=== PATIENT | male | born 1990 | race Hispanic/Latino ===

== ENCOUNTER 2017-06-03 17:07 | Emergency (ER) | payer BC ==
[2017-06-03 17:21] VITALS: TEMP 98.2
[2017-06-03] MEDS ORDERED: HYDROcodone 10MG/APAP 325MG 1 EA TAB PO ONE (17:37)
[2017-06-03] MEDS ORDERED: KETOROLAC TROMETHAMINE INJ 60 MG/2 ML VIAL IM ONE (17:37)
--- NOTE | 2017-06-03 17:57 | ED.PDOC ---
History of Present Illness - General Chief Complaint: Upper Extremity Injury Stated Complaint: left shoulder pain Time Seen by Provider: 06/03/17 17:37 Source: patient Exam Limitations: no limitations - History of Present Illness Initial Comments: PT REPORTS INTERMITTENT PAIN TO THE LEFT SHOULDER WHILE WORKING OVER THE PAST FEW WEEKS. PT HAS HAD A ROTATOR CUFF REPAIR ON THE LEFT AND BELIEVES HE MAY HAVE RE-INJURED THE SHOULDER WHILE WORKING. PT DOES NOT RECALL ANY SPECIFIC EVENT AND STATES THAT PAIN HAS GRADUALLY INCREASED. Pain - Upper Extremity: moderate: Shoulder, left Method of Injury: unknown Improving Factors: immobilization, rest Worsening Factors: movement Allergies/Adverse Reactions: Allergies NO KNOWN ALLERGY Allergy (Verified 06/03/17 17:21) Home Medications: Ambulatory Orders Alprazolam [Xanax] 1 mg PO PRN 06/03/17 Clonazepam [Clonazepam] 1 mg PO BID 06/03/17 Ibuprofen 800 mg PO Q8HR PRN #30 tab 06/03/17 Tramadol-Acetaminophen [Ultracet] 1 - 2 tab PO Q6HR PRN #30 tab 06/03/17 Venlafaxine Xr [Effexor Xr] 75 mg PO DAILY 06/03/17 Review of Systems - Review of Systems Constitutional: Denies: chills, fever Respiratory: Denies: cough, short of breath Gastrointestinal/Abdominal: Denies: nausea, vomiting Musculoskeletal: States: joint pain. Denies: joint swelling, muscle pain, muscle stiffness Past Medical History (General) - Patient Medical History Hx Stroke: No Hx Congestive Heart Failure: No Hx Diabetes: No - Vaccination History Hx Tetanus, Diphtheria Vaccination: Yes Hx Influenza Vaccination: Yes Hx Pneumococcal Vaccination: No - Social History Hx Tobacco Use: Yes Family Medical History - Family History Father Family History: Unknown Living Status: Unknown Physical Exam - Physical Exam General Appearance: Alert, Comfortable, No apparent distress, Well Developed, Well Groomed, Well Hydrated Eyes, Ears, Nose, Throat Exam: normal ENT inspection Neck: normal inspection Shoulder Exam: normal inspection, no evidence of injury, normal ROM, soft tissue tenderness - TO THE ANTERIOR ASPECT Elbow/Forearm Exam: normal inspection, no evidence of injury Wrist Exam: normal inspection, no evidence of injury Hand Exam: normal inspection, no evidence of injury Neuro/Tendon: normal sensation, normal motor functions, normal tendon functions Mental Status: alert, oriented x 3 Skin Exam: normal color, warm/dry Departure - Departure Clinical Impression: Sprain and strain of shoulder and upper arm Time of Disposition: 17:54 Disposition: Discharge to Home or Self Care Condition: Good Departure Forms: ED Discharge - Pt. Copy, Patient Portal Self Enrollment Instructions: DI for Arm Pain, DI for Shoulder Sprain Activity: no lifting, no pushing/pulling with affected limb Referrals: Efe Juarez MD [Active Staff] - 1-2 Weeks Prescriptions: Tramadol-Acetaminophen [Ultracet] 1 - 2 tab PO Q6HR PRN #30 tab PRN Reason: Pain Ibuprofen 800 mg PO Q8HR PRN #30 tab PRN Reason: Pain Home Medications: Ambulatory Orders Alprazolam [Xanax] 1 mg PO PRN 06/03/17 Clonazepam [Clonazepam] 1 mg PO BID 06/03/17 Ibuprofen 800 mg PO Q8HR PRN #30 tab 06/03/17 Tramadol-Acetaminophen [Ultracet] 1 - 2 tab PO Q6HR PRN #30 tab 06/03/17 Venlafaxine Xr [Effexor Xr] 75 mg PO DAILY 06/03/17
[2017-06-03 18:09] VITALS: BP 137/86; O2SAT 83
== END 2017-06-03 18:15 | disposition home or self-care (01) ==
LOC: ER 17:07
DX: S43.409A Unspecified sprain of unspecified shoulder joint, initial encounter (principal); S46.919A Strain of unspecified muscle, fascia and tendon at shoulder and upper arm level, unspecified arm, initial encounter; X58.XXXA Exposure to other specified factors, initial encounter